=== PATIENT | male | born 1955 | race Caucasian/White ===

== ENCOUNTER → 2019-01-01 | Outpatient (CLI) | payer OTHER ==
--- NOTE | 2019-01-01 16:39 | REP ---
Right knee series: Five views. History: Pain in the right knee. No comparison study available. Findings: Five views of the right knee demonstrate severe three compartment osteoarthritis. There are multiple osteocartilaginous loose bodies and large spurs are seen. The largest presumed loose body is seen at the anterior joint line measuring 2.9 cm in greatest diameter. There is chondrocalcinosis. Fairly large medial and lateral osteophytes are seen at the tibiotalar articulation. There is patellofemoral spurring as well. There is hypertrophic spurring at the proximal tibiofibular articulation also noted. Impression: Advanced three compartment osteoarthritis. There are large osteocartilaginous loose bodies measuring up to 2.9 cm in greatest diameter.
== END ==
LOC: M CLY 15:36
PROVIDERS: ATTEND Nurse Practitioner Family
DX: M25.561 Pain in right knee (principal)

== ENCOUNTER → 2019-02-17 | Outpatient (REF) | payer OTHER ==
[2019-02-18 11:23] LABS: HEMATOCRIT 41.3 % (42.0-52.0); HEMOGLOBIN 13.8 g/dl (13.5-17.5); MEAN CORPUSCULAR HEMOGLOBIN 32.1 pg (27.0-33.0); MEAN CORPUSCULAR HGB CONC 33.4 g/dl (32.0-36.5); PLATELET COUNT, AUTOMATED 253 10^3/uL (150-450); WHITE BLOOD COUNT 6.1 10^3/uL (4.0-10.0)
[2019-02-18 11:33] LABS: ALT/SGPT 46 U/L (12-78); BILIRUBIN,TOTAL 0.4 MG/DL (0.2-1.0); BLOOD UREA NITROGEN 15 MG/DL (7-18); CALCIUM LEVEL 9.6 MG/DL (8.8-10.2); CARBON DIOXIDE LEVEL 30 MEQ/L (21-32); CHLORIDE LEVEL 106 MEQ/L (98-107); CHOLESTEROL LEVEL 157 MG/DL (<200); CHOLESTEROL RISK RATIO 2.962 (<5); CREATININE FOR GFR 0.93 MG/DL (0.70-1.30); GLOMERULAR FILTRATION RATE > 60.0 (>49); GLUCOSE, FASTING 86 MG/DL (70-100); HDL CHOLESTEROL 53 MG/DL (>40); LDL CHOLESTEROL 95 MG/DL (<100); NON-HDL-C 104 MG/DL; POTASSIUM SERUM 4.1 MEQ/L (3.5-5.1); SODIUM LEVEL 141 MEQ/L (136-145); TOTAL PROTEIN 8.2 GM/DL (6.4-8.2); TRIGLYCERIDES LEVEL 44 MG/DL (<150); URIC ACID 8.9 MG/DL (3.5-7.2)
== END ==
LOC: M SFHCCLAY 14:27
PROVIDERS: ATTEND Nurse Practitioner Family
DX: M10.9 Gout, unspecified (principal); Z13.6 Encounter for screening for cardiovascular disorders

== ENCOUNTER → 2020-01-18 | Outpatient (REF) | payer OTHER ==
[2020-01-19 12:12] LABS: HEMATOCRIT 43.1 % (42.0-52.0); HEMOGLOBIN 14.3 g/dl (13.5-17.5); MEAN CORPUSCULAR HEMOGLOBIN 32.4 pg (27.0-33.0); MEAN CORPUSCULAR HGB CONC 33.2 g/dl (32.0-36.5); MEAN CORPUSCULAR VOLUME 97.5 fl (80.0-96.0); PLATELET COUNT, AUTOMATED 187 10^3/uL (150-450); RED BLOOD COUNT 4.42 10^6/uL (4.30-6.10); WHITE BLOOD COUNT 5.7 10^3/uL (4.0-10.0)
[2020-01-19 13:30] LABS: ALT/SGPT 75 U/L (12-78); BILIRUBIN,TOTAL 0.7 MG/DL (0.2-1.0); BLOOD UREA NITROGEN 15 MG/DL (7-18); CARBON DIOXIDE LEVEL 31 MEQ/L (21-32); CHLORIDE LEVEL 106 MEQ/L (98-107); CHOLESTEROL LEVEL 136 MG/DL (<200); CHOLESTEROL RISK RATIO 1.971 (<5); CREATININE FOR GFR 0.96 MG/DL (0.70-1.30); GLOMERULAR FILTRATION RATE > 60.0 (>49); GLUCOSE, FASTING 91 MG/DL (70-100); HDL CHOLESTEROL 69 MG/DL (>40); LDL CHOLESTEROL 60 MG/DL (<100); NON-HDL-C 67 MG/DL; SODIUM LEVEL 141 MEQ/L (136-145); TRIGLYCERIDES LEVEL 33 MG/DL (<150); URIC ACID 5.8 MG/DL (3.5-7.2)
== END ==
LOC: M SFHCCLAY 14:25
PROVIDERS: ATTEND Nurse Practitioner Family
DX: M17.11 Unilateral primary osteoarthritis, right knee (principal); Z13.6 Encounter for screening for cardiovascular disorders; M10.9 Gout, unspecified

== ENCOUNTER → 2020-09-20 | Outpatient (CLI) | payer OTHER ==
[~2020-09-20] MED LIST: IBUP200C89 PO; PERC5TAB12 PO; XARE10TA PO
--- NOTE | 2020-09-21 02:50 | REP ---
INDICATION: PRE-OP; DVT RIGHT LOWER EXTREMITY; OSTEROARTHRITIS RT KNEE COMPARISON: None. TECHNIQUE: PA and lateral. FINDINGS: The mediastinum and cardiac silhouette are normal. The lung rosario are clear and without acute consolidation, effusion, or pneumothorax. The skeletal structures are intact and normal. IMPRESSION: No acute cardiopulmonary process. <Electronically signed by Amandeep Kirby > 09/21/20 [id number]
== END ==
LOC: M CLY 13:23
PROVIDERS: ATTEND Family Medicine
DX: M19.90 Unspecified osteoarthritis, unspecified site (principal)

== ENCOUNTER → 2020-09-20 | Outpatient (REF) | payer OTHER ==
[~2020-09-20] MED LIST changes: -PERC5TAB12 PO; -XARE10TA PO
[2020-09-20 16:01] LABS: HEMATOCRIT 45.2 % (42.0-52.0); HEMOGLOBIN 14.8 g/dl (13.5-17.5); MEAN CORPUSCULAR HEMOGLOBIN 31.1 pg (27.0-33.0); MEAN CORPUSCULAR HGB CONC 32.7 g/dl (32.0-36.5); PLATELET COUNT, AUTOMATED 176 10^3/uL (150-450); RED BLOOD COUNT 4.76 10^6/uL (4.30-6.10); WHITE BLOOD COUNT 5.3 10^3/uL (4.0-10.0)
[2020-09-20 16:15] LABS: ALBUMIN 3.9 GM/DL (3.2-5.2); ALT/SGPT 35 U/L (12-78); BILIRUBIN,TOTAL 0.5 MG/DL (0.2-1.0); BLOOD UREA NITROGEN 12 MG/DL (7-18); CALCIUM LEVEL 9.6 MG/DL (8.8-10.2); CARBON DIOXIDE LEVEL 31 MEQ/L (21-32); CHLORIDE LEVEL 106 MEQ/L (98-107); CREATININE FOR GFR 0.84 MG/DL (0.70-1.30); GLOMERULAR FILTRATION RATE > 60.0 (>49); GLUCOSE, FASTING 87 MG/DL (70-100); SODIUM LEVEL 142 MEQ/L (136-145)
[2020-09-20 16:16] LABS: INR 1.03; PROTHROMBIN TIME 13.7 SECONDS (12.5-14.3)
[2020-09-20 16:17] LABS: PARTIAL THROMBOPLASTIN TIME 57.2 SECONDS (24.2-38.5)
== END ==
LOC: M SFHCCLAY 13:24
PROVIDERS: ATTEND Family Medicine
DX: M17.11 Unilateral primary osteoarthritis, right knee (principal); Z86.718 Personal history of other venous thrombosis and embolism

== ENCOUNTER → 2020-09-22 | Outpatient (CLI) | payer OTHER ==
[~2020-09-22] MED LIST changes: +PERC5TAB12 PO; +XARE10TA PO
== END ==
LOC: M LABSMTC 13:12
PROVIDERS: ATTEND Anesthesiology
DX: Z01.812 Encounter for preprocedural laboratory examination (principal); Z20.822 Contact with and (suspected) exposure to COVID-19

== ENCOUNTER → 2020-09-23 | Outpatient (REF) | payer OTHER | LOC: M LABDRAWC 16:02 | PROVIDERS: ATTEND Orthopaedic Surgery | DX: Z01.818 Encounter for other preprocedural examination (principal); M17.11 Unilateral primary osteoarthritis, right knee ==

== ENCOUNTER 2020-09-26 05:59 | Inpatient (IN) | payer OTHER ==
--- NOTE | 2020-09-23 21:48 | HPE ---
HISTORY AND PHYSICAL DATE OF ANTICIPATED ADMISSION: 09/26/2020 ATTENDING PHYSICIAN: Jony Triplett M.D. CHIEF COMPLAINT: Right knee pain and stiffness. HISTORY OF PRESENT ILLNESS: This is a 65-year-old male patient with progressively worsening right knee pain and stiffness. He has failed to improve with conservative management. He has pain with weightbearing activities and activities of daily living. He has elected for surgery for his continued symptoms. He has been consented by Dr. Triplett for a right total knee arthroplasty. X-ray is notable for end-stage advanced degenerative changes of the right knee. ALLERGIES: No known drug allergies. CURRENT MEDICATIONS: None. PAST MEDICAL HISTORY: History of a DVT that was treated initially with Eliquis until his vascular doctor has discontinued the Eliquis. He currently is not treated for any medical conditions. PAST SURGICAL HISTORY: None. FAMILY HISTORY: Diabetes. SOCIAL HISTORY: Does not smoke. He does occasional use alcohol. REVIEW OF SYSTEMS: Denies fever or chills. Denies chest pain, shortness of breath or cough. Denies difficulty breathing. Denies abdominal pain. Denies nausea or vomiting. Notes persistent knee pain on the right side with weightbearing activities and activities of daily living. Denies exposure to COVID-19. PHYSICAL EXAMINATION TODAY: Reveals a well-nourished, well developed male patient. He ambulates with a slight limp and gait favoring his right side. Exam of the right knee reveals the skin to be intact. No erythema, edema or ecchymosis. There is trace effusion. There is tenderness mainly medially, but some tenderness laterally as well. Range of motion is full with irritability at the extremes of range of motion. The calf is soft, nontender to palpation, no pitting edema noted in the right lower extremity. Straight leg raise testing is negative on the right side. He can sense a light touch in the right lower extremity. Neck is supple, without adenopathy or JVD. Lungs are clear to auscultation without rales or wheeze. Heart regular rate and rhythm. Abdomen bowel sounds were present. IMAGING: Chest x-ray no acute cardiopulmonary disease process noted. LABORATORY DATA: WBC 5.3, RBC 4.76, hemoglobin 14.8, hematocrit 45.2. PT 13.7, INR 1.03. Glucose 97, BUN 12, creatinine 0.84, sodium 142, potassium 4.0. IMPRESSION: Symptomatic osteoarthritis of the right knee. PLAN: He is consented by Dr. Triplett for a right total knee arthroplasty. We did review his pre and postoperative instructions. We went over the importance of him being n.p.o. after midnight. He understands to call on Saturday to find out what time he needs to be there on Saturday. He understands after his COVID testing, to self quarantine. We went over n.p.o. and what n.p.o. means. He understands at this juncture to avoid all NSAIDs to include aspirin five days prior to surgery. We did review what NSAIDs are. All of his questions were answered. He understands to be on time. We did discuss current COVID situation and visitation as well.
[~2020-09-26] VITALS: Ht 188 cm; Wt 119.0 kg
[2020-09-26] VITALS (10 sets, daily range): BP systolic 145–172; BP diastolic 82–128
[~2020-09-26 05:59] MED LIST changes: -PERC5TAB12 PO; -XARE10TA PO
[2020-09-26] MEDS ORDERED: LR 1,000 ML IV ONE (06:30)
[2020-09-26] MEDS ORDERED: ceFAZolin SOD 2 GM in IV 1 EA IV ONE (06:30)
[2020-09-26] MEDS ORDERED: MIDAZOLAM INJ 2MG/2ML VIAL (J2250 PER 1MG) As Ordered ONE ×2 (07:05→07:39)
[2020-09-26] MEDS ORDERED: fentaNYL 100 MCG/2 ML INJECTION (J3010) As Ordered ONE (07:05)
[2020-09-26] MEDS ORDERED: EPINEPHrine INJ 1 MG/ML 1ML AMP As Ordered ONE ×2 (07:06→07:12)
[2020-09-26] MEDS ORDERED: LIDOCAINE 1% MDV 20ML VIAL As Ordered ONE (07:06)
[2020-09-26] MEDS ORDERED: BUPIVACAINE HCL 0.5% 30 ML VIAL As Ordered ONE (07:07)
[2020-09-26] MEDS ORDERED: BUPIVACAINE HCL 0.25% 10ML VIAL As Ordered ONE (07:11)
[2020-09-26] MEDS ORDERED: ceFAZolin 1GM VIAL (J0690 PER 500MG) As Ordered ONE (07:11)
[2020-09-26] MEDS ORDERED: TRANEXAMIC ACID 100 MG/ML 10ML VIAL As Ordered ONE (07:11)
[2020-09-26] MEDS ORDERED: BUPIVACAINE LIPOSOME/PF 1.3% 20ML VIAL (13.3MG/ML)(EXPAREL)(C9290 PER1MG) As Ordered ONE (07:12)
[2020-09-26] MEDS ORDERED: dexameTHASONE 4 MG/ML 1ML VIAL (J1100 PER 1MG) As Ordered ONE (07:14)
[2020-09-26] MEDS ORDERED: propofoL 500 MG/50 ML VIAL As Ordered ONE (07:14)
[2020-09-26] MEDS ORDERED: LIDOCAINE 2% 100MG/5ML SDV (FOR ANES.) As Ordered ONE (07:14)
[2020-09-26] MEDS ORDERED: ONDANSETRON 4MG/2ML VIAL As Ordered ONE (07:14)
[2020-09-26] MEDS ORDERED: dexameTHASONE 10MG/1ML VIAL PRES.FREE (J1100 PER 1MG) As Ordered ONE (07:19)
[2020-09-26] MEDS: fentaNYL 100 MCG/2 ML INJECTION (J3010) IV PRN ×2 (07:20→07:29)
[2020-09-26] MEDS: MIDAZOLAM INJ 2MG/2ML VIAL (J2250 PER 1MG) IV PRN ×2 (07:21→07:30)
[2020-09-26] MEDS ORDERED: BUPIVACAINE HCL 0.5% 30 ML VIAL XX ONE (07:30)
[2020-09-26] MEDS ORDERED: EPINEPHrine INJ 1 MG/ML 1ML AMP XX ONE (07:30)
[2020-09-26] MEDS ORDERED: LIDOCAINE 1% MDV 20ML VIAL XX ONE (07:30)
[2020-09-26] MEDS ORDERED: dexameTHASONE 10MG/1ML VIAL PRES.FREE (J1100 PER 1MG) XX ONE ×2 (08:15→08:30)
[2020-09-26] MEDS ORDERED: propofoL 200 MG/20 ML VIAL As Ordered ONE ×3 (08:33→09:08)
[2020-09-26] MEDS ORDERED: PERCOCET 5MG/325MG TAB PO PRN ×3 (10:00→10:15)
[2020-09-26] MEDS ORDERED: METOCLOPRAMIDE INJ 10MG/2ML VIAL (J2765 PER 1) IV PRN (10:00)
[2020-09-26] MEDS ORDERED: fentaNYL 100 MCG/2 ML INJECTION (J3010) IV PRN (10:00)
[2020-09-26] MEDS ORDERED: LR 1,000 ML IV SCH ×2 (10:00→10:15)
[2020-09-26] MEDS ORDERED: ONDANSETRON 4MG/2ML VIAL IV PRN ×2 (10:00→10:15)
--- NOTE | 2020-09-26 10:14 | REP ---
INDICATION: POST OP IN PACU/ WILL CALL WHEN READY. COMPARISON: Comparison right knee radiographs are from January 01, 2019.. TECHNIQUE: Two views. AP and lateral. FINDINGS: AP and latter views of the full right knee demonstrate right knee arthroplasty components in good position. There is periarticular and intra-articular postoperative air. Anterior skin [place] are seen.. . . IMPRESSION: Postop right knee arthroplasty.. <Electronically signed by Graham Hale > 09/26/20 [id number]
[2020-09-26] MEDS ORDERED: MORPHINE 4 MG/ML 1ML VIAL/SYRINGE (J2270) IV PRN (10:15)
[2020-09-26] MEDS ORDERED: ACETAMINOPHEN TAB 650MG DOSE (2X325MG) PO PRN (10:15)
[2020-09-26] MEDS ORDERED: MORPHINE 2 MG/ML 1ML VIAL (J2270) IV PRN (10:15)
--- NOTE | 2020-09-26 11:46 | RO ---
OPERATIVE NOTE DATE OF OPERATION: 09/26/2020 PREOPERATIVE DIAGNOSIS: Right knee osteoarthritis. POSTOPERATIVE DIAGNOSIS: Right knee osteoarthritis, multiple loose bodies. PROCEDURE: Right total knee arthroplasty using Attune rotating platform posterior stabilized size 8 femur, size 9 tray, 7 polyethylene, 38 patellar button. SURGEON: Jony Triplett MD SHUTTLE FITTING SUPERVISOR: STVEE Osborne ANESTHESIA: Spinal. EBL: 50. COMPLICATIONS: None. DESCRIPTION OF PROCEDURE: The patient was taken to the operating room and placed in the supine position after spinal anesthesia was induced. The right lower extremity was prepped and draped in the usual sterile fashion. Time out was performed. Tourniquet was inflated. I then created a longitudinal incision over the anterior aspect of the knee on the right side. Sharp dissection was carried down through subcutaneous tissue. I performed a medial parapatellar arthrotomy per routine, everted the patella, flexed the knee up. This was somewhat difficult due to the severity of arthritis and contractures. He did have a significant flexion contracture and multiple large loose bodies; there were a couple that were about 2 cm in diameter that were removed in the anterior part of the knee. I did a medial release per routine, flexed the knee up and used a canal-initiating reamer on the femoral side followed by the intramedullary guide which I set at 7 degrees of valgus and 9 mm cut, this was to best match his anatomy and help with soft tissue balance. The block was then secured to the end of the femur. I brought it back an additional 2 mm and then the distal femoral cut was made. I felt like it was not quite deep enough down to the notch and with this flexion contracture I put it back an additional 2 mm and recut this. I then sized the femur to be 8, drill holes were placed in the end of the femur, the cutting block was secured and the remaining cuts were made. Excess bone was removed. I then prepared the tibial surface, tibial retractors were placed, tibial alignment guide was then secured and 4 mm was taken off the low side which was the lateral side. Posterior slope and varus/valgus were set appropriately. The pins were placed in the tibia and the proximal tibial cut was made protecting soft tissues. PCL was removed. I then prepared the box with the size 8 cutting block on the femur and the remaining cuts were made removing the excess bone. Music Intern was then used to remove soft tissues and osteophytes from either side of the knee. The posterolateral side had significant large osteophytes that were relatively difficult to remove but I was able to get it cleaned out appropriately. I then used spacer blocks and trialed 6 and 7; the 7 seemed to be the most appropriate. It had excellent stability and alignment in flexion and extension. The tibial tray was then prepared, it was sized to be 9 and this was drilled and broached. The trial components were placed. I impacted in the femur and the polyethylene was placed and the overall stability and alignment appeared to be excellent. He was in slight valgus which I think helped balance his soft tissues. I then free-hand cut the patella removing about 7 mm of bone, sized to be 38, drill holes were placed and drill holes were placed in the end of the femur. The trial components were removed and the cosmetic sales assistant prepared the bone cement in modern technique. I then irrigated the bony surfaces, placed Exparel in the deep tissues and aspirated before injecting. The surfaces were copiously irrigated and dried and the components were cemented in the usual fashion removing excess bone cement. I then did another deep irrigation, placed TXA and began closing the deep layer with #1 Vicryl suture. I had also reinforced the patellar tendon attachment as there was slight pull-off and #1 Vicryl suture [id number] was placed through the bone and tendon to augment this. It was very secure and stable after this. I then did final deep irrigation, closed the remaining wound with running Stratafix obtaining a watertight closure. Closed the subcu with 2-0 Vicryl, patellar clamp had been removed when the cement was hardened. The tourniquet was deflated once the cement was hardened, again irrigated, closed the subcu with 2-0 Vicryl and skin with [place]. Sterile dressing was applied. She was taken to the recovery room in stable condition. There were no known complications. Plan is routine postop. The cosmetic sales assistant was instrumental in holding retractors and assisting in mixing the bone cement and assisting in wound closure.
--- NOTE | 2020-09-26 11:46 | IPN ---
PROGRESS NOTE DATE: 09/26/2020 Patient seen and examined. He wishes to go ahead with a right total knee arthroplasty. He understands the nature of this, the risks of bleeding, infection, damage to the nerves and vessels, persistent pain, wear, loosening, blood clots, medical problems, , among others. Patient had been consented.
--- NOTE | 2020-09-26 11:53 | CR.PDOC ---
General Date of Consultation: Sep 26, 2020 Consultation REASON FOR CONSULTATION/CHIEF COMPLAINT: s/p R total knee arthroplasty, medical consult HISTORY OF PRESENT ILLNESS: 65 yo M with a hx of DVT (off of AC), underwent a R total knee arthroplasty for OA on 09/26/[address] Triplett, POD#1. Patient is doing well post-op. He rerpots his pain is well controlled. He denies CP, SOB, cough, n/v/d, fevers or chills Vitals review. T 96.2. HR 73. RR 16. BP 129/76. SpO2 100% on RA. ALLERGIES: Please see below. HOME MEDICATIONS: Please see below. PAST MEDICAL HISTORY: DVT, off of anticoagulation PAST SURGICAL HISTORY: No prior hx FAMILY HISTORY: reports diabetes SOCIAL HISTORY: non smoker occasional etoh use denies illicits REVIEW OF SYSTEMS: 10 point ROS completed, relevant findings noted in HPI PHYSICAL EXAMINATION: VITAL SIGNS: please see below General: NAD, comfortable HEENT: PERRLA, EOMI, sclerae clear Neck: supple, normal ROM, no JVD Respiratory: lungs CTAB, no wheeze, no rales, no crackles CVS: RRR, normal S1, S2, no murmurs Abdo: soft, no masses, no hepatosplenomegaly, BS+, no rebound tenderness Extremities: no edema, pulses 2+ MSK: R knee dressing clean, dry, intact Neuro: no focal neuro deficits, moving all 4 extremities, CN2-12 intact. Strength 5/5 in all 4 extremities. No nystagmus. Psych: calm, cooperative, AAO x 3 LABORATORY DATA: Please see below. R knee AP/Lat XR (09/26/20): FINDINGS: AP and latter views of the full right knee demonstrate right knee arthroplasty components in good position. There is periarticular and intra-articular postoperative air. Anterior skin [place] are seen. IMPRESSION: Postop right knee arthroplasty. ASSESSMENT/PLAN: s/p R knee total arthroplasty - post op Day 1 - DVT ppx and pain control per ortho - presently on xarelto - pain control with percocet and morphine for sever pain - agree with PT and OT eval Hx of DVT - AC was stopped on outpatient basis - on DVT ppx with xarelto Vital Signs/I&O Vital Signs Date Time Temp Pulse Resp B/P (MAP) Pulse Ox O2 Delivery O2 Flow Rate FiO2 2/22/21 10:30 73 16 129/76 (93) 100 Room Air 09/26/20 10:15 96.2 09/26/20 07:30 3 Allergies Coded Allergies: No Known Allergies (Unverified , 09/26/20) Home Medications Scheduled PRN Ibuprofen (Ibuprofen) 200 Mg Capsule, 200 MG PO PRN PRN for PAIN, (Reported) JANNET POOL MD Sep 26, 2020 11:53
[2020-09-26] MEDS: ceFAZolin SOD 2 GM in IV 1 EA IV SCH ×2 (16:06→23:36)
[2020-09-27 02:00] VITALS: BP 144/89
[2020-09-27] MEDS ORDERED: PERC5TAB12 PO (05:47)
[2020-09-27] MEDS ORDERED: XARE10TA PO (05:47)
[2020-09-27 06:00] VITALS: BP 146/90
[2020-09-27 06:12] LABS: HEMATOCRIT 40.7 % (42.0-52.0); HEMOGLOBIN 13.7 g/dl (13.5-17.5); MEAN CORPUSCULAR HEMOGLOBIN 31.7 pg (27.0-33.0); MEAN CORPUSCULAR HGB CONC 33.7 g/dl (32.0-36.5); MEAN CORPUSCULAR VOLUME 94.2 fl (80.0-96.0); PLATELET COUNT, AUTOMATED 162 10^3/uL (150-450); RED BLOOD COUNT 4.32 10^6/uL (4.30-6.10); WHITE BLOOD COUNT 11.7 10^3/uL (4.0-10.0)
[2020-09-27] MEDS ORDERED: MIRALAX *UNIT DOSE* 17GM PACKET PO SCH (09:00)
[2020-09-27] MEDS ORDERED: MOM 30ML SUSPENSION UDC PO SCH (09:00)
[2020-09-27] MEDS ORDERED: amLODIPine 5 MG TAB PO SCH (09:00)
[2020-09-27 09:01] VITALS: BP 152/81
[2020-09-27 10:22] VITALS: BP 152/81
[2020-09-27] MEDS ORDERED: RIVAROXABAN 10 MG TAB (XARELTO) PO SCH (18:00)
== END 2020-09-27 11:05 | disposition home or self-care (01) | DRG 302 ==
LOC: M OR 05:59 → M MS5PR 10:45
PROVIDERS: ADMIT Orthopaedic Surgery; ATTEND Orthopaedic Surgery
PROC: 0SRC0J9 Replacement of Right Knee Joint with Synthetic Substitute, Cemented, Open Approach (ICD-10-PCS; principal; 2020-09-26 07:30)
DX: M17.11 Unilateral primary osteoarthritis, right knee (principal); Z86.718 Personal history of other venous thrombosis and embolism